=== PATIENT | female | born 1965 | race Caucasian/White ===

== ENCOUNTER 2019-01-27 22:47 | Inpatient (IN) ==
[2019-01-27 23:28] LABS: Basophils % 0.1 % (0.0-0.8); Eosinophils % 0.3 % (0.00-10.9); Immature Granulocytes % 0.6 %; Lymphocytes % 6.1 % (21.3-54.2); Mean Corpuscular HGB Conc 27.5 GM/DL (32-36); Mean Corpuscular Volume 73.7 FL (87-102); Mean Platelet Volume 10.9 FL (9.6-12.0); Monocytes % 5.1 % (1.7-12.7); NRBC # 0.02 10*3/uL; Neutrophils % 87.8 % (38.7-73.9); Platelet Count 351 T/CUMM (130-400); Red Blood Count 2.17 MC/CUMM (3.8-5.5); Red Cell Distribution Width 16.4 % (9.3-17.3)
[2019-01-27 23:33] LABS: Hemoglobin 4.4 GM/DL (12.0-16.0)
[2019-01-27 23:42] LABS: Troponin I < 0.015 NG/ML (0.00-0.045)
[2019-01-28 00:08] LABS: INR 0.9; PT Patient Result 10.3 SECS (9.6-12.2); Partial Thromboplastin Time < 21.0 SECS (20.8-36.0)
[2019-01-28 00:27] LABS: Anisocytosis 3+; Hypochromasia 2+; Macrocytosis 1+; Microcytosis 2+; Ovalocytes 1+; Platelet Estimate Adequate; Target Cells Few
[2019-01-28] MEDS ORDERED: ACETAMINOPHEN 500 MG TABLET PO PRN (01:25)
[2019-01-28] MEDS ORDERED: SODIUM CHLORIDE 0.9% 1,000 ML IV PRN ×3 (01:25→14:43)
[2019-01-28] MEDS ORDERED: ONDANSETRON 4 MG/2 ML VIAL IV PRN (01:25)
[2019-01-28] MEDS ORDERED: fentaNYL 100 MCG/2 ML VIAL IV PRN (01:25)
[2019-01-28] MEDS ORDERED: FUROSEMIDE 20 MG/2 ML VIAL IV ONE (06:01)
[2019-01-28] MEDS ORDERED: PANTOPRAZOLE 40 MG TABLET PO SCH (09:00)
[2019-01-28 10:56] LABS: Basophils # 0.1 10*3/uL (0.0-0.2); Basophils % 0.6 % (0.0-0.8); Eosinophils % 0.3 % (0.00-10.9); Hematocrit 25.2 VOL% (35.7-47.0); Immature Granulocytes % 0.7 %; Immature Granulocytes Absolute 0.07 #; Lymphocytes # 1.1 10*3/uL (1.4-4.0); Lymphocytes % 11.3 % (21.3-54.2); Mean Corpuscular HGB Conc 31.3 GM/DL (32-36); Mean Corpuscular Volume 80.5 FL (87-102); Monocytes % 9.3 % (1.7-12.7); NRBC # 0.03 10*3/uL; Neutrophils % 77.8 % (38.7-73.9); Platelet Count 257 T/CUMM (130-400); Red Blood Count 3.13 MC/CUMM (3.8-5.5); Red Cell Distribution Width 18.5 % (9.3-17.3); White Blood Count 9.4 T/CUMM (4-12)
[2019-01-28 10:57] LABS: Hemoglobin 7.9 GM/DL (12.0-16.0)
[2019-01-28 21:35] LABS: Hematocrit 29.5 VOL% (35.7-47.0); Hemoglobin 9.4 GM/DL (12.0-16.0)
[2019-01-28] MEDS ORDERED: LACTATED RINGERS 1,000 ML IV SCH (23:00)
[2019-01-29] MEDS ORDERED: PROPOFOL 200 MG/20 ML VIAL IV ONE (10:00)
[2019-01-29] MEDS ORDERED: MIDAZOLAM 2 MG/2 ML VIAL ONE (10:01)
[2019-01-29] MEDS ORDERED: ACETAMINOPHEN 1,000 MG/100 ML VIAL IV ONE (10:01)
[2019-01-29] MEDS ORDERED: SEVOFLURANE 1 UNIT/15 MINUTE INH ONE (10:01)
[2019-01-29] MEDS ORDERED: ONDANSETRON 4 MG/2 ML VIAL ONE (10:01)
[2019-01-29] MEDS ORDERED: DEXAMETHASONE 4 MG/1 ML VIAL ONE (10:01)
[2019-01-29] MEDS ORDERED: fentaNYL 100 MCG/2 ML VIAL ONE (10:01)
[2019-01-29 14:27] VITALS: BP 145/67
== END 2019-01-29 14:35 | disposition home or self-care (01) | DRG 745 ==
LOC: N.ED 22:47 → N.EDINP 01-28 01:23 → N.CC 01-28 02:30 → N.OB 01-28 12:08
PROVIDERS: ADMIT Obstetrics & Gynecology; ATTEND Obstetrics & Gynecology

== ENCOUNTER 2019-02-03 17:10 | Inpatient (IN) ==
[2019-02-03 20:13] LABS: Basophils # 0.1 10*3/uL (0.0-0.2); Basophils % 0.8 % (0.0-0.8); Eosinophils # 0.1 10*3/uL (0.0-0.87); Eosinophils % 1.3 % (0.00-10.9); Hematocrit 36.3 VOL% (35.7-47.0); Hemoglobin 11.1 GM/DL (12.0-16.0); Immature Granulocytes % 0.5 %; Immature Granulocytes Absolute 0.04 #; Lymphocytes # 1.3 10*3/uL (1.4-4.0); Lymphocytes % 14.9 % (21.3-54.2); Mean Corpuscular HGB Conc 30.6 GM/DL (32-36); Mean Corpuscular Volume 82.5 FL (87-102); Mean Platelet Volume 10.9 FL (9.6-12.0); Monocytes % 6.7 % (1.7-12.7); Neutrophils % 75.8 % (38.7-73.9); Platelet Count 191 T/CUMM (130-400); Red Cell Distribution Width 18.6 % (9.3-17.3); White Blood Count 8.6 T/CUMM (4-12)
[2019-02-03 20:30] LABS: INR 0.9; Partial Thromboplastin Time 23.5 SECS (20.8-36.0)
[2019-02-03 20:48] LABS: Alanine Aminotransferase 19 U/L (13-56); Albumin 3.7 G/DL (3.4-5.0); Alkaline Phosphatase 57 U/L (45-117); Aspartate Amino Transferase 12 U/L (0-37); Bilirubin,Total < 0.39 MG/DL (0.2-1.0); Blood Urea Nitrogen 14 MG/DL (7-18); Glucose 104 MG/DL (74-106); Osmolality,Calculated 283.1 MOS/KG (273-304); Total Protein 7.6 G/DL (6.4-8.3)
[2019-02-03] MEDS ORDERED: ceFAZolin 2,000 MG in PREMIX 1 EACH IV ONE (21:48)
[2019-02-03] MEDS ORDERED: ACETAMINOPHEN/CODEINE 300-30 MG TABLET PO PRN ×2 (21:52)
[2019-02-03] MEDS ORDERED: ONDANSETRON 4 MG/2 ML VIAL IV PRN (21:52)
[2019-02-03] MEDS ORDERED: SODIUM PHOSPHATE ENEMA 133 ML BOTTLE RECTAL ONE (23:37)
[2019-02-04] MEDS: LACTATED RINGERS 1,000 ML IV SCH ×4 (00:07→23:31)
[2019-02-04] MEDS ORDERED: ceFAZolin 2,000 MG in PREMIX 1 EACH IV ONE (08:00)
[2019-02-04] MEDS ORDERED: MICROFIBRILLAR COLLAGEN POWDER 1 GM CAN TOP ONE (08:58)
[2019-02-04] MEDS ORDERED: BUPIVACAINE 0.5% 50 ML VIAL ONE (09:46)
[2019-02-04] MEDS ORDERED: DEXAMETHASONE 4 MG/1 ML VIAL ONE ×2 (09:46→11:11)
[2019-02-04] MEDS ORDERED: EPINEPHrine 1 MG/ML VIAL ONE (09:57)
[2019-02-04] MEDS ORDERED: ONDANSETRON 4 MG/2 ML VIAL IV PRN ×2 (10:31→11:22)
[2019-02-04] MEDS ORDERED: BENZOCAINE/MENTHOL LOZENGE 18/BOX PO PRN (10:31)
[2019-02-04] MEDS ORDERED: ACETAMINOPHEN 325 MG TABLET PO PRN (10:31)
[2019-02-04] MEDS ORDERED: IBUPROFEN 800 MG TABLET PO PRN (10:31)
[2019-02-04] MEDS ORDERED: BISACODYL 10 MG SUPP RECTAL PRN (10:31)
[2019-02-04 10:50] LABS: Apearance,Urine CLEAR (Clear); Bilirubin,Urine Negative (Negative); Blood, Urine Negative (Negative); Glucose,Urine (UA) Negative (Negative); Ketones,Urine Negative (Negative); Nitrite,Urine Negative (Negative); Protein,Urine Negative; RBC,Urine <1 /HPF (0-4); Urine Color Straw (Yellow); Urine Specific Gravity 1.006 (1.001-1.035); Urine Urobilinogen < 2.0 EU/DL (0.2-1.0); WBC,Urine <1 /HPF (0-6)
[2019-02-04] MEDS ORDERED: PROPOFOL 200 MG/20 ML VIAL IV ONE (11:10)
[2019-02-04] MEDS ORDERED: fentaNYL 100 MCG/2 ML VIAL ONE (11:11)
[2019-02-04] MEDS ORDERED: DESFLURANE 1 UNIT/15 MINUTE INH ONE (11:11)
[2019-02-04] MEDS ORDERED: KETOROLAC 30 MG/1 ML VIAL ONE (11:11)
[2019-02-04] MEDS ORDERED: MIDAZOLAM 2 MG/2 ML VIAL ONE (11:11)
[2019-02-04] MEDS ORDERED: GLYCOPYRROLATE 0.4 MG/2 ML VIAL ONE (11:11)
[2019-02-04] MEDS ORDERED: ACETAMINOPHEN 1,000 MG/100 ML VIAL IV ONE (11:11)
[2019-02-04] MEDS ORDERED: ONDANSETRON 4 MG/2 ML VIAL ONE ×2 (11:11→11:24)
[2019-02-04] MEDS ORDERED: PHENYLEPHRINE 1 MG/10 ML SYRINGE IV ONE (11:12)
[2019-02-04] MEDS ORDERED: LACTATED RINGERS 1,000 ML IV ONE (11:12)
[2019-02-04] MEDS ORDERED: ROCURONIUM 100 MG/10 ML VIAL IV ONE (11:12)
[2019-02-04] MEDS ORDERED: NEOSTIGMINE 10 MG/10 ML VIAL ONE (11:12)
[2019-02-04] MEDS ORDERED: HYDROmorphone 2 MG/1 ML VIAL IV PRN (11:22)
[2019-02-04] MEDS ORDERED: HYDROmorphone 2 MG/1 ML VIAL ONE (11:24)
[2019-02-04] MEDS: HYDROmorphone 2 MG/1 ML VIAL IV PRN ×2 (11:25→12:42)
[2019-02-04] MEDS: SIMETHICONE CHEW 80 MG TABLET PO PRN (14:30)
[2019-02-04] MEDS: ceFAZolin 1,000 MG in SYRINGE 1 EACH IV SCH (17:08)
[2019-02-04] MEDS ORDERED: METOCLOPRAMIDE 10 MG TABLET PO SCH (19:30)
[2019-02-05] MEDS: ceFAZolin 1,000 MG in SYRINGE 1 EACH IV SCH (00:37)
[2019-02-05 04:52] LABS: Apearance,Urine CLEAR (Clear); Bilirubin,Urine Negative (Negative); Blood, Urine Negative (Negative); Glucose,Urine (UA) Negative (Negative); Ketones,Urine Negative (Negative); Nitrite,Urine Negative (Negative); Protein,Urine Negative; RBC,Urine 1 /HPF (0-4); Urine Color Colorless (Yellow); Urine Specific Gravity 1.003 (1.001-1.035); Urine Urobilinogen < 2.0 EU/DL (0.2-1.0); WBC,Urine 11 /HPF (0-6)
[2019-02-05] MEDS: ACETAMINOPHEN 500 MG TABLET PO SCH ×2 (05:58→18:35)
[2019-02-05] MEDS: ceFAZolin 2,000 MG in SYRINGE 1 EACH IV SCH ×2 (06:00→12:10)
[2019-02-05 06:29] LABS: Basophils % 0.1 % (0.0-0.8); Eosinophils % 0.1 % (0.00-10.9); Hematocrit 29.7 VOL% (35.7-47.0); Hemoglobin 9.2 GM/DL (12.0-16.0); Immature Granulocytes % 0.5 %; Immature Granulocytes Absolute 0.08 #; Lymphocytes % 6.8 % (21.3-54.2); Mean Corpuscular Volume 81.4 FL (87-102); Mean Platelet Volume 9.9 FL (9.6-12.0); Monocytes % 8.9 % (1.7-12.7); Neutrophils % 83.6 % (38.7-73.9); Platelet Count 210 T/CUMM (130-400); Red Blood Count 3.65 MC/CUMM (3.8-5.5); Red Cell Distribution Width 19.2 % (9.3-17.3); White Blood Count 14.7 T/CUMM (4-12)
[2019-02-05] MEDS: LACTATED RINGERS 1,000 ML IV SCH (07:12)
[2019-02-05] MEDS: METOCLOPRAMIDE 10 MG TABLET PO SCH ×2 (08:36→18:35)
[2019-02-05] MEDS: MAGNESIUM HYDROXIDE SUSP 30 ML UDCUP PO PRN ×2 (08:36→20:49)
[2019-02-05] MEDS: DOCUSATE SODIUM 100 MG CAPSULE PO PRN ×2 (08:36→20:49)
[2019-02-05] MEDS: SIMETHICONE CHEW 80 MG TABLET PO PRN ×2 (08:36→20:49)
[2019-02-06] MEDS: METOCLOPRAMIDE 10 MG TABLET PO SCH ×2 (00:11→14:08)
[2019-02-06] MEDS: ACETAMINOPHEN 500 MG TABLET PO SCH ×2 (00:12→06:24)
[2019-02-06] MEDS: DOCUSATE SODIUM 100 MG CAPSULE PO PRN (09:05)
[2019-02-06 14:13] VITALS: BP 141/70
== END 2019-02-06 15:00 | disposition home or self-care (01) | DRG 743 ==
LOC: N.ED 17:10 → N.EDINP 20:56 → N.OB 21:16
PROVIDERS: ADMIT Obstetrics & Gynecology; ATTEND Obstetrics & Gynecology